=== PATIENT | male | born 1990 | race African-American/Black ===

== ENCOUNTER 2018-10-25 21:04 | Emergency (ER) | payer OTHER ==
[~2018-10-25] VITALS: Ht 185.4 cm; Wt 80.9 kg
[2018-10-25 21:05] VITALS: BP 139/86
[2018-10-25] MEDS ORDERED: valACYclovir HCL 500 MG TAB PO ONE (22:30)
[2018-10-25] MEDS ORDERED: VALA1TAB2 PO (22:34)
[2018-10-25 23:49] LABS: CHLAMYDIA DNA AMPLIFICATION NEGATIVE (NEGATIVE); GC DNA AMPLIFICATION NEGATIVE (NEGATIVE)
== END 2018-10-25 22:41 | disposition home or self-care (01) ==
LOC: M ED 21:04
DX: A60.02 Herpesviral infection of other male genital organs (principal); F17.200 Nicotine dependence, unspecified, uncomplicated